=== PATIENT | female | born 1980 | race Caucasian/White ===

== ENCOUNTER 2020-05-18 17:38 | Emergency (ER) | payer OTHER ==
[~2020-05-18] VITALS: Ht 162.6 cm; Wt 81.6 kg
== END 2020-05-18 19:04 | disposition home or self-care (01) ==
LOC: ER 17:38
DX: H61.21 Impacted cerumen, right ear (principal)

== ENCOUNTER 2020-07-02 09:35 | Emergency (ER) | payer OTHER ==
[~2020-07-02] VITALS: Ht 162.6 cm; Wt 81.2 kg
[2020-07-02] MEDS ORDERED: MEDROLPACK PO (10:33)
[2020-07-02] MEDS ORDERED: BETAMETHASONE D15 G2 TOP (10:33)
[2020-07-02] MEDS ORDERED: ALL DAY ALLERGY10 M3 PO (10:33)
== END 2020-07-02 10:50 | disposition home or self-care (01) ==
LOC: ER 09:35
DX: R21 Rash and other nonspecific skin eruption (principal); T78.49XA Other allergy, initial encounter; X58.XXXA Exposure to other specified factors, initial encounter

== ENCOUNTER 2022-06-30 06:32 | Day surgery (SDC) | payer OTHER ==
[~2022-06-30] VITALS: Ht 162.6 cm; Wt 83.9 kg
[~2022-06-30 06:32] MED LIST: ALL DAY ALLERGY10 M3 PO; BETAMETHASONE D15 G2 TOP; MEDROLPACK PO
== END 2022-06-30 21:25 | disposition home or self-care (01) ==
LOC: CIR.AMB 06:32
PROVIDERS: ATTEND Surgery
DX: C50.812 Malignant neoplasm of overlapping sites of left female breast (principal); C77.3 Secondary and unspecified malignant neoplasm of axilla and upper limb lymph nodes; F12.90 Cannabis use, unspecified, uncomplicated; D64.9 Anemia, unspecified; Z20.822 Contact with and (suspected) exposure to COVID-19
CPT/HCPCS: 19281; 19301; 38525; 38792; A9541; L8699

== ENCOUNTER 2022-07-21 06:38 | Day surgery (SDC) | payer OTHER | END 2022-07-21 12:00 | disposition home or self-care (01) | LOC: CIR.AMB 06:38 | PROVIDERS: ATTEND Surgery | DX: C50.912 Malignant neoplasm of unspecified site of left female breast (principal); Z20.822 Contact with and (suspected) exposure to COVID-19; Z86.16 Personal history of COVID-19 ==

== ENCOUNTER 2022-08-11 05:38 | Day surgery (SDC) | payer OTHER ==
[~2022-08-11] VITALS: Ht 162.6 cm; Wt 83.9 kg
[2022-08-11] MEDS ORDERED: ULTRACET PO (11:13)
== END 2022-08-11 14:50 | disposition home or self-care (01) ==
LOC: CIR.AMB 05:38
PROVIDERS: ATTEND Surgery
DX: C50.412 Malignant neoplasm of upper-outer quadrant of left female breast (principal); Z20.822 Contact with and (suspected) exposure to COVID-19

== ENCOUNTER 2022-08-15 14:52 | Emergency (ER) | payer OTHER ==
[~2022-08-15] VITALS: Ht 162.6 cm; Wt 83.9 kg
[~2022-08-15 14:52] MED LIST changes: +ULTRACET PO
== END 2022-08-15 19:20 | disposition home or self-care (01) ==
LOC: ER 14:52
DX: T78.49XA Other allergy, initial encounter (principal); X58.XXXA Exposure to other specified factors, initial encounter; C50.912 Malignant neoplasm of unspecified site of left female breast

== ENCOUNTER 2022-08-17 14:05 | Emergency (ER) | payer OTHER ==
[~2022-08-17] VITALS: Ht 162.6 cm; Wt 83.9 kg
[2022-08-17] MEDS ORDERED: DICLOFENAC SODI75 MG PO (21:45)
== END 2022-08-17 22:11 | disposition home or self-care (01) ==
LOC: ER 14:05
DX: M94.0 Chondrocostal junction syndrome [Tietze] (principal)

== ENCOUNTER 2022-10-06 09:41 | Emergency (ER) | payer OTHER ==
[~2022-10-06] VITALS: Ht 162.6 cm; Wt 83.9 kg
[~2022-10-06 09:41] MED LIST changes: +DICLOFENAC SODI75 MG PO
[2022-10-06] MEDS ORDERED: ELIQUIS5 MG PO (09:55)
[2022-10-06] MEDS ORDERED: NEURONTIN300 MG PO (09:56)
[2022-10-06] MEDS ORDERED: VALTREX1000 MG PO (09:56)
== END 2022-10-06 11:20 | disposition home or self-care (01) ==
LOC: ER 09:41
DX: B02.21 Postherpetic geniculate ganglionitis (principal); C50.919 Malignant neoplasm of unspecified site of unspecified female breast

== ENCOUNTER 2023-03-23 06:55 | Day surgery (SDC) | payer OTHER ==
[~2023-03-23 06:55] MED LIST changes: +ELIQUIS5 MG PO; +NEURONTIN300 MG PO; +VALTREX1000 MG PO
[2023-03-23] MEDS ORDERED: TRAM1TAB98 PO (10:27)
== END 2023-03-23 11:15 | disposition home or self-care (01) ==
LOC: CIR.AMB 06:55
PROVIDERS: ATTEND Surgery
DX: C50.412 Malignant neoplasm of upper-outer quadrant of left female breast (principal); Z20.822 Contact with and (suspected) exposure to COVID-19

== ENCOUNTER 2023-07-30 20:40 | Emergency (ER) | payer OTHER ==
[~2023-07-30] VITALS: Ht 162.6 cm; Wt 88.5 kg
[~2023-07-30 20:40] MED LIST changes: +TRAM1TAB98 PO
[2023-07-30] MEDS ORDERED: LEVOTHYROXINE25 MCG PO (21:29)
[2023-07-30] MEDS ORDERED: ARIMIDEX (21:29)
[2023-07-30] MEDS ORDERED: ZOLADEX3.6 MG SQ (21:30)
== END 2023-07-31 00:30 | disposition home or self-care (01) ==
LOC: ER 20:41
DX: S49.82XA Other specified injuries of left shoulder and upper arm, initial encounter (principal); W19.XXXA Unspecified fall, initial encounter; Y93.89 Activity, other specified; Y92.89 Other specified places as the place of occurrence of the external cause; Y99.8 Other external cause status

== ENCOUNTER 2024-06-27 12:14 | Outpatient (CLI) | payer OTHER ==
[~2024-06-27 12:14] MED LIST changes: +ARIMIDEX; +LEVOTHYROXINE25 MCG PO; +ZOLADEX3.6 MG SQ
== END 2024-06-27 12:18 | disposition home or self-care (01) ==
LOC: MAMO-SONO 12:14
PROVIDERS: ATTEND Internal Medicine
DX: C50.412 Malignant neoplasm of upper-outer quadrant of left female breast (principal)

== ENCOUNTER 2024-06-28 09:26 | Outpatient (CLI) | payer OTHER ==
[2024-06-28 11:18] LABS: HEMATOCRIT 35.4 % (36.0-45.00); HEMOGLOBIN 11.9 g/dL (12.0-15.00); MEAN CELL VOLUME 75.8 fL (80.00-100.00); MEAN CORPUSCULAR HEMOGLOBIN 25.4 pg (27.00-32.0); MEAN CORPUSCULAR HGB CONC 33.5 g/dl (32.0-36.0); PLATELET COUNT 175 K/uL (150-450); RED BLOOD COUNT 4.67 M/uL (4.00-6.00); RED CELL DISTRIBUTION WIDTH 14.1 % (11.5-14.5)
[2024-06-28 11:28] LABS: ALBUMIN 3.9 gm/dL (3.4-5.0); BILIRUBIN TOTAL 0.48 mg/dL (0.3-1.2); CALCIUM 9.3 mg/dL (8.5-10.1); CREATININE SERUM 0.69 mg/dL (0.55-1.02); GFR 92.86; GLOBULINA 3.1 G/DL (2.4-3.5); POTASSIUM 4.04 mEq/L (3.5-5.1)
== END 2024-06-28 09:29 | disposition home or self-care (01) ==
LOC: LAB 09:26
PROVIDERS: ATTEND Internal Medicine
DX: C50.612 Malignant neoplasm of axillary tail of left female breast (principal); E55.9 Vitamin D deficiency, unspecified

== ENCOUNTER 2024-06-30 11:58 | Outpatient (CLI) | payer OTHER ==
[2024-06-30 12:58] LABS: HEMATOCRIT 36.9 % (36.0-45.00); HEMOGLOBIN 12.1 g/dL (12.0-15.00); MEAN CELL VOLUME 76.7 fL (80.00-100.00); MEAN CORPUSCULAR HEMOGLOBIN 25.2 pg (27.00-32.0); MEAN CORPUSCULAR HGB CONC 32.8 g/dl (32.0-36.0); PLATELET COUNT 187 K/uL (150-450); RED BLOOD COUNT 4.81 M/uL (4.00-6.00); RED CELL DISTRIBUTION WIDTH 13.9 % (11.5-14.5)
[2024-06-30 13:00] LABS: URINE APPEARANCE Clear; URINE BILIRRUBIN Negative (NEGATIVE); URINE BLOOD Negative; URINE COLOR Yellow; URINE GLUCOSE Negative (NEGATIVE); URINE KETONE Negative (NEGATIVE); URINE LEUKOCYTE Small; URINE NITRATE Negative; URINE PROTEIN Negative (NEGATIVE); URINE UROBILINOGEN 0.2 E.U./dl
[2024-06-30 13:04] LABS: URINE EPITHELIAL CELLS 52.5 uL (0.0-38.8); URINE RBC 37.7 uL (0.0-20.8); URINE WBC 53.6 uL (0.0-23.2)
[2024-06-30 13:22] LABS: URINE BACTERIA > 9821.5 uL (0.0-1933); URINE CAST 0.45 uL (0.0-1.40)
[2024-06-30 13:57] LABS: BILIRUBIN TOTAL 0.55 mg/dL (0.3-1.2); CALCIUM 9.3 mg/dL (8.5-10.1); CREATININE SERUM 0.61 mg/dL (0.55-1.02); FREE TRIODOTIRONINE 2.9 pg/ml (2.18-3.98); GFR 107.05; GLOBULINA 3.3 G/DL (2.4-3.5); POTASSIUM 4.09 mEq/L (3.5-5.1); T4 FREE 0.91 NG/ML (0.76-1.46); TOTAL PROTEIN 7.3 gm/dL (6.4-8.2); TSH 0.926 uIU/mL (0.358-3.74)
[2024-06-30 14:18] LABS: CORTISOL 5.49 ug/dl
[2024-06-30 14:19] LABS: VITAMIN D3 25 HYDROXY > 120.00 ng/ml (30-120)
[2024-07-02 06:05] LABS: INSULIN LEVELS 8.7 uIU/mL (2.6-24.9)
== END 2024-06-30 11:59 | disposition home or self-care (01) ==
LOC: LAB 11:58
PROVIDERS: ATTEND Internal Medicine Endocrinology, Diabetes & Metabolism
DX: E11.65 Type 2 diabetes mellitus with hyperglycemia (principal); E03.9 Hypothyroidism, unspecified; D64.9 Anemia, unspecified; E53.8 Deficiency of other specified B group vitamins; E78.2 Mixed hyperlipidemia; E24.9 Cushing's syndrome, unspecified; N39.0 Urinary tract infection, site not specified

== ENCOUNTER 2024-06-30 13:28 | Outpatient (CLI) | payer OTHER | END 2024-06-30 13:35 | disposition home or self-care (01) | LOC: SONOGRAMA 13:28 | PROVIDERS: ATTEND Internal Medicine Endocrinology, Diabetes & Metabolism | DX: E04.1 Nontoxic single thyroid nodule (principal) ==

== ENCOUNTER 2024-07-14 07:31 | Outpatient (CLI) | payer OTHER | END 2024-07-14 07:36 | disposition home or self-care (01) | LOC: SONOGRAMA 07:31 | DX: N20.0 Calculus of kidney (principal); N39.0 Urinary tract infection, site not specified; N93.9 Abnormal uterine and vaginal bleeding, unspecified; K81.0 Acute cholecystitis ==

== ENCOUNTER 2024-07-14 09:56 | Outpatient (CLI) | payer OTHER ==
[2024-07-14 11:19] LABS: PH,URINE 6.5 (5.0-8.0); URINE APPEARANCE Clear; URINE BILIRRUBIN Negative (NEGATIVE); URINE BLOOD Negative; URINE COLOR Yellow; URINE GLUCOSE Negative (NEGATIVE); URINE KETONE Negative (NEGATIVE); URINE LEUKOCYTE Negative; URINE NITRATE Negative; URINE PROTEIN Negative (NEGATIVE); URINE UROBILINOGEN 0.2 E.U./dl
[2024-07-14 11:20] LABS: URINE BACTERIA 108.3 uL (0.0-1933); URINE EPITHELIAL CELLS 4.6 uL (0.0-38.8)
[2024-07-14 11:27] LABS: URINE RBC 0.3 uL (0.0-20.8); URINE WBC 1.3 uL (0.0-23.2)
== END 2024-07-14 09:57 | disposition home or self-care (01) ==
LOC: LAB 09:56
DX: N39.0 Urinary tract infection, site not specified (principal)

== ENCOUNTER → 2024-07-23 07:18 | Outpatient (CLI) | payer OTHER | END | disposition home or self-care (01) | LOC: NUCLEAR 06:00 | PROVIDERS: ATTEND Internal Medicine | DX: M89.9 Disorder of bone, unspecified (principal); C50.412 Malignant neoplasm of upper-outer quadrant of left female breast ==

== ENCOUNTER → 2024-07-23 12:52 | Outpatient (CLI) | payer OTHER ==
[2024-07-23 13:33] LABS: HEMATOCRIT 35.7 % (36.0-45.00); HEMOGLOBIN 11.8 g/dL (12.0-15.00); MEAN CORPUSCULAR HGB CONC 32.9 g/dl (32.0-36.0); PLATELET COUNT 181 K/uL (150-450); RED CELL DISTRIBUTION WIDTH 14.4 % (11.5-14.5)
[2024-07-23 14:43] LABS: FERRITIN 64.6 NG/ML (8-252)
== END | disposition home or self-care (01) ==
LOC: LAB 12:52
PROVIDERS: ATTEND Internal Medicine Endocrinology, Diabetes & Metabolism
DX: D64.9 Anemia, unspecified (principal)

== ENCOUNTER → 2024-12-10 07:38 | Outpatient (CLI) | payer OTHER ==
[2024-12-10 08:32] LABS: HEMATOCRIT 36.8 % (36.0-45.00); HEMOGLOBIN 12.4 g/dL (12.0-15.00); MEAN CORPUSCULAR HEMOGLOBIN 25.3 pg (27.00-32.0); MEAN CORPUSCULAR HGB CONC 33.8 g/dl (32.0-36.0); PLATELET COUNT 193 K/uL (150-450); RED CELL DISTRIBUTION WIDTH 14.7 % (11.5-14.5)
[2024-12-10 08:34] LABS: URINE APPEARANCE Clear; URINE BILIRRUBIN Negative (NEGATIVE); URINE BLOOD Negative; URINE COLOR Yellow; URINE GLUCOSE Negative (NEGATIVE); URINE KETONE Negative (NEGATIVE); URINE LEUKOCYTE Moderate; URINE NITRATE Negative; URINE PROTEIN Negative (NEGATIVE)
[2024-12-10 08:35] LABS: URINE BACTERIA 362.1 uL (0.0-1933); URINE EPITHELIAL CELLS 7.4 uL (0.0-38.8); URINE RBC 6.3 uL (0.0-20.8); URINE WBC 20.8 uL (0.0-23.2)
[2024-12-10 08:39] LABS: URINE CAST 0.44 uL (0.0-1.40)
[2024-12-10 09:52] LABS: ALBUMIN 4.2 gm/dL (3.4-5.0); BILIRUBIN TOTAL 0.55 mg/dL (0.3-1.2); BILIRUBIN,CONJUGATED 0.13 mg/dL (0.0-0.2); BILIRUBIN,UNCONJUGATED 0.42 mg/dL (0.0-0.6); CALCIUM 9.7 mg/dL (8.5-10.1); CHOL HDL RATIO 4.4 (0-5.0); CREATININE SERUM 0.63 mg/dL (0.55-1.02); GFR 102.66; GLOBULINA 3.2 G/DL (2.4-3.5); MAGNESIUM 2.3 mg/dL (1.8-2.4); POTASSIUM 3.95 mEq/L (3.5-5.1); T4 TOTAL 9.01 UG/DL (4.8-13.9); TOTAL PROTEIN 7.4 gm/dL (6.4-8.2); TSH 2.31 uIU/mL (0.358-3.74)
[2024-12-10 13:21] LABS: T3 TOTAL 1.63 ng/ml (0.846-2.02); VITAMIN D3 25 HYDROXY 54.45 ng/ml (30-120)
== END | disposition home or self-care (01) ==
LOC: LAB 07:38
DX: I10 Essential (primary) hypertension (principal); E03.9 Hypothyroidism, unspecified; E78.5 Hyperlipidemia, unspecified; E55.9 Vitamin D deficiency, unspecified; E11.9 Type 2 diabetes mellitus without complications

== ENCOUNTER 2025-03-02 10:17 | Outpatient (CLI) | payer OTHER ==
[2025-03-02 11:48] LABS: URINE APPEARANCE Clear; URINE BILIRRUBIN Negative (NEGATIVE); URINE BLOOD Negative; URINE COLOR Yellow; URINE GLUCOSE Negative (NEGATIVE); URINE KETONE Negative (NEGATIVE); URINE LEUKOCYTE Large; URINE NITRATE Negative; URINE PROTEIN Negative (NEGATIVE); URINE UROBILINOGEN 0.2 E.U./dl
[2025-03-02 11:50] LABS: URINE BACTERIA 1051.1 uL (0.0-1933); URINE EPITHELIAL CELLS 18.4 uL (0.0-38.8); URINE RBC 25.6 uL (0.0-20.8); URINE WBC 63.9 uL (0.0-23.2)
[2025-03-02 11:54] LABS: URINE CAST 0.00 uL (0.0-1.40)
[2025-03-02 12:38] LABS: CHOL HDL RATIO 4.8 (0-5.0); HDL 47.0 mg/dl (40-60); LDL 156.0 mg/dl (0-130); T4 TOTAL 7.84 UG/DL (4.8-13.9); TSH 1.63 uIU/mL (0.358-3.74); VLDL 22.0 (0-39)
[2025-03-02 12:58] LABS: T3 TOTAL 1.260 ng/ml (0.846-2.02); VITAMIN D3 25 HYDROXY 49.04 ng/ml (30-120)
== END 2025-03-02 10:20 | disposition home or self-care (01) ==
LOC: LAB 10:17
DX: E03.9 Hypothyroidism, unspecified (principal); E55.9 Vitamin D deficiency, unspecified; D51.9 Vitamin B12 deficiency anemia, unspecified; E78.2 Mixed hyperlipidemia; N39.0 Urinary tract infection, site not specified; Z12.11 Encounter for screening for malignant neoplasm of colon; K21.9 Gastro-esophageal reflux disease without esophagitis; M19.90 Unspecified osteoarthritis, unspecified site; M85.80 Other specified disorders of bone density and structure, unspecified site; Z00.01 Encounter for general adult medical examination with abnormal findings

== ENCOUNTER 2025-04-08 07:41 | Outpatient (CLI) | payer OTHER | END 2025-04-08 07:43 | disposition home or self-care (01) | LOC: MRI 07:41 | PROVIDERS: ATTEND Obstetrics & Gynecology | DX: R19.00 Intra-abdominal and pelvic swelling, mass and lump, unspecified site (principal); R10.2 Pelvic and perineal pain | CPT/HCPCS: 72197 ==

== ENCOUNTER 2025-06-30 08:24 | Outpatient (CLI) | payer OTHER | END 2025-06-30 08:27 | disposition home or self-care (01) | LOC: MAMO-SONO 08:24 | PROVIDERS: ATTEND Internal Medicine | DX: C50.412 Malignant neoplasm of upper-outer quadrant of left female breast (principal) ==

== ENCOUNTER 2025-07-01 08:10 | Outpatient (CLI) | payer OTHER | END 2025-07-01 08:11 | disposition home or self-care (01) | LOC: NUCLEAR 08:10 | DX: R60.0 Localized edema (principal) ==

== ENCOUNTER 2025-07-23 12:11 | Outpatient (CLI) | payer OTHER | END 2025-07-23 12:16 | disposition home or self-care (01) | LOC: RAD 12:11 | DX: M25.511 Pain in right shoulder (principal) ==